=== PATIENT | male | born 1995 | race Two or more races ===

== ENCOUNTER 2025-02-24 15:24 | Emergency (ER) | payer OTHER ==
[~2025-02-24] VITALS: Ht 170.2 cm; Wt 89.8 kg
[2025-02-24] MEDS ORDERED: SYSTANE ULTRA 010 ML OP (17:25)
[2025-02-24] MEDS ORDERED: POLYMYXIN B/TMP10 ML OP (17:25)
[2025-02-24] MEDS ORDERED: ALAWAY10 ML OP (17:25)
== END 2025-02-24 17:29 | disposition home or self-care (01) ==
LOC: ER 15:44
DX: H53.141 Visual discomfort, right eye (principal)